=== PATIENT | female | born 1985 ===

== ENCOUNTER 2016-10-01 10:24 | Day surgery (SDC) | payer OTHER ==
--- NOTE | 2016-10-01 13:38 | CP.SDSHP ---
Same Day Surgery H & P - History Proposed Procedure: EGD - Previous Medical/Surgical History Endocrine/Metabolic: Diabetes, Other Neuro: Backaches Misc: Other Pain: 4.Moderate Pain - Allergies Allergies: Allergies No Known Allergies Allergy (Unverified 10/01/16 11:35) - Physical Exam General Appearance: N Vital Signs: Vital Signs 10/01/16 11:30 Temperature 98.2 F Pulse Rate 71 Respiratory 19 Rate Blood Pressure 124/71 O2 Sat by Pulse 100 Oximetry Mental Status: Alert & Oriented x3 Neuro: WNL Heart: WNL Lungs: WNL GI: Other - {Optional Preform as Required} Breast: WNL Rectal: Other Integument: WNL : WNL Ortho: Other ENT: WNL - Impression Pt. Evaluated Today:Candidate for Anesthesia & Procedure: Yes - Date & Time Time: 13:38 Short Stay Discharge - Short Stay Discharge Admitting Diagnosis/Reason for Visit: DYSPEPSIA Disposition: HOME/ ROUTINE
[2016-10-01] MEDS ORDERED: Belladonna-Phenobarbital PO STA (13:39)
[2016-10-01] MEDS ORDERED: Pantoprazole 40 mg EC Tab PO STA (13:39)
[2016-10-01] MEDS ORDERED: Propofol 10 mg/ml Inj (20 ML) ONE (13:43)
[2016-10-01 14:06] VITALS: TEMP 97.8
[2016-10-01 14:41] VITALS: O2SAT 99
[2016-10-01 15:11] VITALS: BP 120/60; PULSE 67; RESP 16
== END 2016-10-01 15:09 | disposition home or self-care (01) ==
LOC: C.ENDO 10:24
PROVIDERS: ATTEND Specialist
DX: K20.9 Esophagitis, unspecified (principal)
CPT/HCPCS: 43239; 82948; 84703; 88305; J2704

== ENCOUNTER 2016-10-30 06:52 | Day surgery (SDC) | payer OTHER ==
[2016-10-30 07:34] VITALS: BMI 39.6
[2016-10-30] MEDS ORDERED: Lactated Ringer's 500 ML IV ONE (08:35)
[2016-10-30] MEDS ORDERED: Propofol 10 mg/ml Inj (20 ML) ONE (08:35)
--- NOTE | 2016-10-30 08:35 | CP.SDSHP ---
Same Day Surgery H & P - History Proposed Procedure: COLONSCOPY Pre-Op Diagnosis: SEE NOTES - Previous Medical/Surgical History Endocrine/Metabolic: Diabetes Neuro: Headaches, Backaches Misc: Other Pain: 4.Moderate Pain - Allergies Allergies: Allergies No Known Allergies Allergy (Unverified 10/01/16 11:35) - Physical Exam General Appearance: N Vital Signs: Vital Signs 10/30/16 08:08 Temperature 97.8 F Pulse Rate 77 Respiratory 19 Rate Blood Pressure 102/56 L O2 Sat by Pulse 100 Oximetry Neuro: WNL Heart: WNL Lungs: WNL GI: Other - {Optional Preform as Required} Breast: WNL Abdomen: Other Rectal: Other Integument: WNL : WNL Ortho: Other ENT: WNL - Impression Pt. Evaluated Today:Candidate for Anesthesia & Procedure: Yes - Date & Time Time: 08:34 Short Stay Discharge - Short Stay Discharge Admitting Diagnosis/Reason for Visit: RECTAL BLEEDING Disposition: HOME/ ROUTINE
[2016-10-30] MEDS ORDERED: Belladonna-Phenobarbital PO STA (08:36)
[2016-10-30 08:59] VITALS: TEMP 97.3
[2016-10-30 09:09] VITALS: RESP 18; O2SAT 100
[2016-10-30 11:15] VITALS: BP 101/63; PULSE 75
== END 2016-10-30 09:55 | disposition home or self-care (01) ==
LOC: C.ENDO 06:52
PROVIDERS: ATTEND Specialist
DX: K64.8 Other hemorrhoids (principal); R19.4 Change in bowel habit; K64.4 Residual hemorrhoidal skin tags; K60.2 Anal fissure, unspecified
CPT/HCPCS: 45380; 82948; 84703; 88305; J2704; J7120